=== PATIENT | male | born 1985 | race Caucasian/White ===

== ENCOUNTER 2017-12-18 15:19 | Emergency (ER) | payer OTHER ==
[~2017-12-18] VITALS: Ht 182.9 cm; Wt 79.4 kg
--- NOTE | 2017-12-18 15:53 | RAD ---
EXAM: Right hand, 3 views. HISTORY: Hit a wall. COMPARISON: None. FINDINGS: Frontal, lateral and oblique views of the right hand are obtained. There is lucency traversing the ulnar aspect of the tuft of the fourth distal phalanx, possibly due to a nondisplaced fracture of uncertain chronicity. No additional fracture is seen. There is no dislocation or subluxation. IMPRESSION: Possible nondisplaced fracture involving the tuft of the fourth distal phalanx. This is only seen on a single projection and is of uncertain chronicity. Given the absence of surrounding soft tissue swelling, this may be chronic. Correlate for tenderness in this location.
--- NOTE | 2017-12-18 16:12 | PHYS DOC ---
General Chief Complaint: HAND PROBLEM Stated Complaint: RT HAND INJURY Time Seen by MD: 15:24 Source: patient Exam Limitations: no limitations Problems: History of Present Illness Initial Comments Patient is a 32-year-old incarcerated male brought to the ED by corrections officers for right hand injury. Patient states he became angry and punched a wall yesterday. He has complained of persistent pain since that time, the facility nurse placed a rapid on it which has not provided any symptomatic relief. He denies any focal bony pain or tenderness just generalized dorsal hand pain no specific finger or fingertip pain. No numbness tingling weakness or radiating symptoms no other injury. Pain is described as sharp and severe worse with movement better with rest. Onset: yesterday Severity: severe Pain/Injury Location: right hand Method of Injury: direct blow Modifying Factors: worse with jarring, worse with movement, improves with rest Allergies: Coded Allergies: No Known Drug Allergies (Unverified , 12/18/17) Past Medical History Medical History: other (anxiety, depression, bipolar disorder, schizophrenia) Surgical History: noncontributory Social History Smoker: cigarettes Alcohol: none Drugs: none Review of Systems Constitutional: denies chills, denies fever Respiratory: denies cough, denies shortness of breath Cardiovascular: denies chest pain, denies palpitations Gastrointestinal: denies nausea, denies vomiting Musculoskeletal: see HPI Skin: see HPI Psychiatric/Neurological: see HPI Physical Exam General Appearance: WD/WN, no apparent distress Cardiovascular/Respiratory: normal peripheral pulses, no respiratory distress Elbow/Forearm: normal inspection, non-tender, no evidence of injury Wrist: normal inspection, non-tender, no evidence of injury Hand: soft tissue tenderness (diffuse MCP joint tenderness of the right hand as well as dorsal hand pain there is mild bruising, specifically there is no tenderness of the distal phalanges and the extremities are neurovascularly intact, flexor and extensor tendon complexes are intact. No palpable bony deformity) Neurologic/Tendon: normal sensation, normal motor functions, normal tendon functions, responds to pain, no evidence tendon injury Psychiatric: alert, oriented x 3 Orders, Labs, Meds PATIENT: SILVER MURGUIA ACCOUNT: [id number] : 1985 LOCATION: ER AGE: 32 SEX: M EXAM STATUS: REG ER ORD. PHYSICIAN: JENNIFER CALDERA DO REASON: trauma/pain PROCEDURE: HAND RIGHT 3V EXAM: Right hand, 3 views. HISTORY: Hit a wall. COMPARISON: None. FINDINGS: Frontal, lateral and oblique views of the right hand are obtained. There is lucency traversing the ulnar aspect of the tuft of the fourth distal phalanx, possibly due to a nondisplaced fracture of uncertain chronicity. No additional fracture is seen. There is no dislocation or subluxation. IMPRESSION: Possible nondisplaced fracture involving the tuft of the fourth distal phalanx. This is only seen on a single projection and is of uncertain chronicity. Given the absence of surrounding soft tissue swelling, this may be chronic. Correlate for tenderness in this location. DICTATED AND SIGNED BY: EVAN HICKMAN MD DATE: 12/18/17 1546 CC: SUE CARRILLO; JENNIFER CALDERA DO ~ Palpation of the fourth distal phalanx reveals no tenderness or evidence of fracture. Departure Time of Disposition: 16:26 Disposition: 01 HOME, SELF-CARE Diagnosis: right hand contusion, Condition: GOOD Patient Instructions: Hand Contusion, [id number], RICE - Routine Care for Injuries, [id number] Additional Instructions: RICE, see handout. Please review the patient education materials given by ED staff. Find a better way to deal with your anger, consider exercise or counseling. [id number] Tylenol 650 mg by mouth every 4-6 hours when necessary pain, [id number] Motrin 600 mg by mouth every 6 hours when necessary pain. No restrictions of right hand or arm use. Follow-up with facility physician as needed. Return to ED as needed. JENNIFER CALDERA DO Dec 18, 2017 16:11
[2017-12-18 16:33] VITALS: BP 114/84
== END 2017-12-18 16:34 | disposition home or self-care (01) ==
LOC: ER 15:19
DX: S60.221A Contusion of right hand, initial encounter (principal); F20.9 Schizophrenia, unspecified; F31.9 Bipolar disorder, unspecified; F41.9 Anxiety disorder, unspecified; F17.210 Nicotine dependence, cigarettes, uncomplicated; W22.01XA Walked into wall, initial encounter; Y93.89 Activity, other specified; Y99.8 Other external cause status; Y92.89 Other specified places as the place of occurrence of the external cause
CPT/HCPCS: 73130; 99284